=== PATIENT | male | born 1965 | race Caucasian/White ===

== ENCOUNTER 2017-10-03 11:01 | Emergency (ER) | payer MEDICAID ==
[~2017-10-03] VITALS: Ht 177.8 cm; Wt 113.6 kg
[2017-10-03] MEDS ORDERED: normal saline 1000ML IV soln IVB STA (11:26)
[2017-10-03] MEDS ORDERED: famotidine/PF 10 mg/ml inj IV ONE (11:30)
[2017-10-03] MEDS ORDERED: methylPREDNISolone sod succ 125mg/2ml vial IV ONE (11:30)
[2017-10-03] MEDS ORDERED: diphenhydrAMINE 50 mg/ml inj IV ONE (11:30)
[2017-10-03] MEDS ORDERED: FAMO-128 PO (13:48)
[2017-10-03] MEDS ORDERED: DIPH25CA83 PO (13:48)
[2017-10-03] MEDS ORDERED: PRED20TA PO (13:48)
[2017-10-03 14:19] VITALS: BP 135/96
== END 2017-10-03 14:20 | disposition home or self-care (01) ==
LOC: ER 11:02
DX: T78.40XA Allergy, unspecified, initial encounter (principal); Z88.1 Allergy status to other antibiotic agents; Z79.899 Other long term (current) drug therapy; X58.XXXA Exposure to other specified factors, initial encounter
CPT/HCPCS: 93005; 96374; 96375; 99284; J1200; J2930; J3490; J7030